=== PATIENT | male | born 1960 | race Caucasian/White ===

== ENCOUNTER → 2018-03-25 10:43 | Outpatient (CLI) | payer BC, SELFPAY ==
[2018-03-25 11:52] LABS: Cholesterol 178 mg/dL (140-199); HDL Cholesterol 49 mg/dL (40-60); LDL Cholesterol Calculated 80 mg/dL (<100); Triglycerides 244 mg/dL (35-150)
== END ==
PROVIDERS: PCP Family Medicine; Visit Provider Family Medicine
DX: E78.00 Pure hypercholesterolemia, unspecified (principal)
CPT/HCPCS: 36415; 80061

== ENCOUNTER → 2018-04-21 11:33 | Outpatient (CLI) | payer BC, SELFPAY ==
--- NOTE | 2018-04-21 11:35 | DI.RAD.S_ITS ---
PROCEDURE: XR KNEE RT 3V INDICATIONS: Knee swelling TECHNIQUE: 3 views of the knee were acquired. COMPARISON: None. FINDINGS: Bones: No fractures or dislocations. No suspicious bony lesions. Mild degenerative joint disease is present trace of joint space narrowing and osteophyte formation. Soft tissues: There is a [id number] joint effusion. No suspicious soft tissue calcifications. IMPRESSION: 1. Mild degenerative joint disease. 2. Moderate to large knee joint effusion. Dictated by: Do Pimentel M.D. on 04/21/2018 at 16:35 Approved by: Do Pimentel M.D. on 04/21/2018 at 16:36
== END ==
PROVIDERS: PCP Family Medicine; Visit Provider Physician Assistant
DX: M25.561 Pain in right knee (principal); M17.11 Unilateral primary osteoarthritis, right knee; M25.461 Effusion, right knee
CPT/HCPCS: 73562

== ENCOUNTER 2018-08-15 18:49 | Emergency (ER) | payer BC, SELFPAY ==
[2018-08-15 18:55] VITALS: BP 147/79; PULSE 83; RESP 16; TEMP 37.3; O2SAT 97
--- NOTE | 2018-08-15 18:58 | DI.RAD.S_ITS ---
PROCEDURE: XR CHEST 1V INDICATIONS: chest pain TECHNIQUE: One view of the chest was acquired. COMPARISON: None. FINDINGS: Surgical changes and devices: None. Lungs and pleura: No pleural effusions or pneumothorax. Lungs are clear. Mediastinum: Mediastinal contours appear normal. Heart size is normal. Bones and chest wall: No suspicious bony lesions. Overlying soft tissues appear unremarkable. IMPRESSION: Normal for age, source of current chest pain symptoms is not seen. Dictated by: Gustavo Martinez M.D. on 08/15/2018 at 19:38 Approved by: Gustavo Martinez M.D. on 08/15/2018 at 19:38
[2018-08-15] MEDS: ASPIRIN 81 MG TAB 324 MG PO (19:17)
--- NOTE | 2018-08-15 19:17 | ED.CHESTPAIN ---
HPI - Chest Pain General Chief Complaint: Chest Pain Stated Complaint: CHEST PAIN Time Seen by Provider: 08/15/18 19:08 Source: patient Mode of arrival: ambulatory Limitations: no limitations History of Present Illness HPI narrative: patient is a 58-year-old male who presents with chest discomfort sent over from the walk-in. He says he woke up last night with some chest pain. He has some pressure in his back as well. He was able to go to work today. He did eventually told his daughter that he needed to go see a doctor today he went to the walk-in clinic. Sent here for further evaluation of chest pain. He does have a history of hypertension but no known coronary artery disease. He denies any fever or productive cough. MD complaint: chest pain Duration: now resolved Onset: during rest Severity: mild Quality: aching and heaviness Pain radiation: none Relieving factors: nothing Exacerbating factors: nothing Treatments prior to arrival chest pain: none Related Data Previous Rx's Medication Instructions Recorded lisinopril-hydrochlorothiazide 0.5 tab PO QDAY #90 tab 11/15/17 diclofenac 1 % topical gel 2 gram TOP QID #100 gram 04/24/18 simvastatin 10 mg tablet 10 mg PO HS #90 tab 06/08/18 Allergies Allergy/AdvReac Type Severity Reaction Status Date / Time No Known Allergies Allergy Uncoded 08/15/18 18:03 Review of Systems Review of Systems GENERAL: Denies chills, fatigue, malaise, fever, sweats, travel HEENT: Denies sinus pain, ear pain, sore throat, difficulty swallowing, neck pain RESPIRATORY: Denies dyspnea, cough, wheezing, hemoptysis, sputum. CARDIOVASCULAR: see hpi GASTROINTESTINAL: Denies nausea, vomiting, abdominal pain, diarrhea, constipation, melena. : Denies dysuria, frequency, incontinence, hematuria, urinary retention, flank pain. MUSCULOSKELETAL: Denies weakness, joint pain, or bony pain SKIN: No rash, no erythema, no pruritus NEUROLOGIC: Denies weakness, dizziness, headache, numbness, change in speech, confusion PSYCHIATRIC: No concerning psychosocial issues. 12 point review of systems is negative except for those stated above and HPI [facility] Surgical History History of partial colectomy (Resolved ~1999) Family History Grandmother Hypertension Father Cancer Mother Cancer Social History Smoking Status: Never smoker Exam Initial Vital Signs Initial Vital Signs: Vital Signs Temperature 99.2 F 08/15/18 18:55 Pulse Rate 83 08/15/18 18:55 Respiratory Rate 16 08/15/18 18:55 Blood Pressure 147/79 H 08/15/18 18:55 Pulse Oximetry 97 08/15/18 18:55 GENERAL: Well-appearing, well-nourished and in no acute distress. HEENT: Head atraumatic,EOMI, pupils reactive, neck is supple CARDIOVASCULAR: Regular rate and rhythm without murmurs, rubs or gallops. RESPIRATORY: Breath sounds equal bilaterally, no wheezes rales or rhonchi. ABDOMEN: Soft, nontender. Normoactive bowel sounds all 4 quadrants. No guarding or rebound. EXTREMITIES: Normal range of motion, no clubbing or edema. Neurovascularly intact NEUROLOGICAL: Alert and oriented x4.Normal gait and speech. Cranial nerves II through XII grossly intact. SKIN: Warm, dry, no laceration, no petechiae, no rashes or lesions. Scores HEART Score Heart Score history: Slightly Suspicious Heart Score EKG: Normal Heart Score Age: 45-64 years old Heart Score risk factors: 1-2 risk factors Heart Score troponin: < or = to normal limit Heart Score Total: 2 Course Orders Ordered: ED Orders 08/15/18 18:58 XR chest 1V Stat EKG-12 Lead Stat 08/15/18 19:07 CKMB Panel (CK + CKMB) Stat Complete Blood Count AUTO DIFF Stat Comprehensive Metabolic Panel Stat Troponin I Stat Discontinued Medications Aspirin (Aspirin Chew) 324 mg PO NOW ONE Stop: 08/15/18 19:16 Last Admin: 08/15/18 19:17 Dose: 324 mg Vital Signs - 8 hr 08/15/18 18:55 08/15/18 19:30 08/15/18 20:00 Temperature 99.2 F Pulse Rate 83 77 78 Respiratory Rate 16 15 24 Blood Pressure 147/79 H Blood Pressure [Left Arm] 127/75 136/76 Pulse Oximetry 97 95 94 MDM - Chest Pain Lab Data Attestation: I reviewed the patient's lab results. Result diagrams: 08/15/18 19:07 08/15/18 19:07 Lab Results 08/15/18 08/15/18 08/15/18 Range/Units 19:07 19:07 19:07 WBC 14.3 H (4.5-11.0) X10^3/uL RBC 4.28 L (4.5-5.9) X10^6/uL Hgb 13.5 (13.5-17.5) g/dL Hct 39.6 L (41-53) % MCV 92.5 (80-100) fL MCH 31.6 (26-34) PG MCHC 34.1 (30-36) % RDW 13.7 (11.6-14.8) % Plt Count 355 (150-400) X10^3/uL Neut % (Auto) 57.0 (50-75) % Lymph % (Auto) 30.0 (25-40) % [place] % (Auto) 8.9 (3-14) % Eos % (Auto) 2.7 (2-4) % Baso % (Auto) 1.4 (0-2) % Neut # (Auto) 8100 H (6346-2761) /uL Lymph # (Auto) 4300 (1432-6332) /uL [place] # (Auto) 1300 H (0-900) /uL Eos # (Auto) 400 (0-450) /uL Baso # (Auto) 200 H (0-100) /uL Sodium 137 (137-145) mmol/L Potassium 3.8 (3.4-5.1) mmol/L Chloride 100 (98-107) mmol/L Carbon Dioxide 24 (22-32) mmol/L BUN 16 (9-20) mg/dL Creatinine 1.10 (0.66-1.25) mg/dL Estimated GFR > 60.0 (>60) mL/min BUN/Creatinine Ratio 14.5 (6-22) Glucose 113 H (70-100) mg/dL Calcium 9.4 (8.4-10.2) mg/dL Total Bilirubin 0.7 (0.2-1.3) mg/dL AST 31 (17-59) IU/L ALT 42 (21-72) IU/L Alkaline Phosphatase 120 (38-126) U/L Total Creatine Kinase 196 H (55-170) U/L CK-MB (CK-2) 1.98 (<2.37) ng/mL CK-MB (CK-2) Rel Index 1.0 L (1.5-5.0) % Troponin I < 0.012 (0.01-0.034) ng/mL Total Protein 8.4 H (6.3-8.2) g/dL Albumin 4.6 (3.5-5.0) g/dL Globulin 3.8 (1.7-4.1) g/dL Albumin/Globulin Ratio 1.2 (1.0-2.8) Imaging Data Chest x-ray: Radiologist's impression: PROCEDURE: XR CHEST 1V INDICATIONS: chest pain TECHNIQUE: One view of the chest was acquired. COMPARISON: None. FINDINGS: Surgical changes and devices: None. Lungs and pleura: No pleural effusions or pneumothorax. Lungs are clear. Mediastinum: Mediastinal contours appear normal. Heart size is normal. Bones and chest wall: No suspicious bony lesions. Overlying soft tissues appear unremarkable. IMPRESSION: Normal for age, source of current chest pain symptoms is not seen. Dictated by: Gustavo Martinez M.D. on 08/15/2018 at 19:38 ECG Data Attestation: I personally reviewed and interpreted this ECG as follows: Prior ECG tracings: not available for review Interpretation: Normal sinus rhythm rate the no acute ST changes Q-waves noted in lateral leads no T-wave inversions. MDM Narrative Medical decision making narrative: Patient refused 2nd EKG stating that they did 1 at the walk-in clinic. He is chest pain-free. No source of chest pain identified. Patient is low risk for cardiac however discussed with both he and his started that he does need further workup such as a stress test. I also encouraged him to return to the emergency department if he should have return of chest pain. He overall is feeling better and wanting to go home. I discussed all findings with the patient and daughter, Education has been performed regarding treatment plan, diagnosis, warning signs and symptoms and all concerns have been addressed. Verbally agree with and understood all of the above. Discharge Plan Departure Patient Disposition: Home Clinical Impression: Atypical chest pain Discharge Date/Time: 08/15/18 20:29 Interventions: ED Discharge Assessment Last Done: 08/15/18 20:29 Instructions: DI for Atypical Chest Pain Activity Restrictions/Additional Instructions: *You have been diagnosed with atypical chest pain *What to do: you do need a stress test. Please call your primary care provider tomorrow to set up a follow-up appointment *Continue to take medications as directed aspirin 81 mg once a day- this help protect you from heart attacks and strokes *Follow up with your primary care provider in 2-3 days *Return to ER if you should have increasing chest pain, change in chest pain, shortness of breath heart palpitations or any new, worsening or concerning symptoms Prescriptions: No Action diclofenac sodium [Voltaren] 1 % gel 2 gram TOP QID Qty: 100 RF: 1 lisinopril-hydrochlorothiazide 20 MG/12.5 MG tablet 0.5 tab PO QDAY Qty: 90 RF: 3 simvastatin 10 mg tablet 10 mg PO HS Qty: 90 RF: 2 Referrals: Demian Suresh MD [Primary Care Provider] -
[2018-08-15 19:18] LABS: Add Manual Diff / Slide Review NO; Basophils Absolute Auto 200 /uL (0-100); Basophils Percent Auto 1.4 % (0-2); Eosinophils Absolute Auto 400 /uL (0-450); Eosinophils Percent Auto 2.7 % (2-4); Hematocrit 39.6 % (41-53); Hemoglobin 13.5 g/dL (13.5-17.5); Lymphocytes Absolute Auto 4300 /uL (1100-4500); Mean Corpuscular HGB Conc 34.1 % (30-36); Mean Corpuscular Hemoglobin 31.6 PG (26-34); Mean Corpuscular Volume 92.5 fL (80-100); Monocytes Absolute Auto 1300 /uL (0-900); Monocytes Percent Auto 8.9 % (3-14); Neutrophils Absolute Auto 8100 /uL (1500-7000); Platelet Count 355 X10^3/uL (150-400); Red Blood Cell Count 4.28 X10^6/uL (4.5-5.9); Red Cell Distribution Width 13.7 % (11.6-14.8); White Blood Cell Count 14.3 X10^3/uL (4.5-11.0)
[2018-08-15 19:30] VITALS: BP 127/75; PULSE 77; RESP 15; O2SAT 95
[2018-08-15 19:30] LABS: Alanine Aminotransferase 42 IU/L (21-72); Albumin 4.6 g/dL (3.5-5.0); Albumin Globulin Ratio 1.2 (1.0-2.8); Alkaline Phosphatase 120 U/L (38-126); Aspartate Aminotransferase 31 IU/L (17-59); BUN Creatinine Ratio 14.5 (6-22); Bilirubin Total 0.7 mg/dL (0.2-1.3); Blood Urea Nitrogen 16 mg/dL (9-20); Calcium 9.4 mg/dL (8.4-10.2); Carbon Dioxide 24 mmol/L (22-32); Chloride 100 mmol/L (98-107); Estimated Glomerular Filt Rate > 60.0 mL/min (>60); Globulin 3.8 g/dL (1.7-4.1); Glucose 113 mg/dL (70-100); HEMOLYSIS < 15 (0-50); Potassium 3.8 mmol/L (3.4-5.1); Sodium 137 mmol/L (137-145); Total Protein 8.4 g/dL (6.3-8.2)
[2018-08-15 19:43] LABS: Troponin I < 0.012 ng/mL (0.01-0.034)
[2018-08-15 20:00] VITALS: BP 136/76; PULSE 78; RESP 24; O2SAT 94
[2018-08-15 20:02] LABS: Creatine Kinase 196 U/L (55-170)
[2018-08-15 20:25] LABS: Creatine Kinase MB 1.98 ng/mL (<2.37)
== END 2018-08-15 20:29 | disposition home or self-care (01) ==
PROVIDERS: Emergency Provider Emergency Medicine; PCP Student in an Organized Health Care Education/Training Program
DX: R07.89 Other chest pain (principal)
CPT/HCPCS: 36415; 71045; 80053; 82550; 82553; 84484; 85025; 93005; 93010; 99282; 99285

== ENCOUNTER → 2020-01-31 12:23 | Outpatient (CLI) | payer OTHER, SELFPAY ==
[2020-02-01 15:40] LABS: Fecal Immunochemical Test Negative (Negative)
== END ==
PROVIDERS: PCP Student in an Organized Health Care Education/Training Program; Referring Provider Student in an Organized Health Care Education/Training Program; Visit Provider Student in an Organized Health Care Education/Training Program
DX: Z12.11 Encounter for screening for malignant neoplasm of colon (principal)
CPT/HCPCS: 82274

== ENCOUNTER → 2023-04-08 10:57 | Outpatient (CLI) | payer OTHER, SELFPAY ==
[2023-04-08 12:27] LABS: Add Manual Diff / Slide Review NO; Basophils Absolute Auto 100 /uL (0-100); Basophils Percent Auto 0.7 % (0-2); Eosinophils Absolute Auto 100 /uL (0-450); Eosinophils Percent Auto 1.3 % (2-4); Hematocrit 41.8 % (41-53); Hemoglobin 14.4 g/dL (13.5-17.5); Lymphocytes Absolute Auto 3200 /uL (1100-4500); Lymphocytes Percent Auto 28.7 % (25-40); Mean Corpuscular HGB Conc 34.4 % (30-36); Mean Corpuscular Hemoglobin 32.5 PG (26-34); Mean Corpuscular Volume 94.5 fL (80-100); Monocytes Absolute Auto 1100 /uL (0-900); Monocytes Percent Auto 9.5 % (3-14); Neutrophils Absolute Auto 6700 /uL (1500-7000); Neutrophils Percent Auto 59.8 % (50-75); Platelet Count 299 X10^3/uL (150-400); Red Blood Cell Count 4.43 X10^6/uL (4.5-5.9); Red Cell Distribution Width 12.9 % (11.6-14.8); White Blood Cell Count 11.3 X10^3/uL (4.5-11.0)
[2023-04-08 13:10] LABS: Alanine Aminotransferase 59 IU/L (<50); Albumin 4.4 g/dL (3.5-5.0); Albumin Globulin Ratio 1.3 (1.0-2.8); Alkaline Phosphatase 101 U/L (38-126); Aspartate Aminotransferase 39 IU/L (17-59); BUN Creatinine Ratio 22.1 (6-22); Bilirubin Total 0.8 mg/dL (0.2-1.3); Blood Urea Nitrogen 23 mg/dL (9-20); Calcium 10.1 mg/dL (8.4-10.2); Carbon Dioxide 20 mmol/L (22-32); Chloride 105 mmol/L (98-107); Cholesterol 188 mg/dL (140-199); Estimated Glomerular Filt Rate > 60 mL/min (>60); Globulin 3.4 g/dL (1.7-4.1); Glucose 115 mg/dL (80-110); HDL Cholesterol 54 mg/dL (40-60); HEMOLYSIS < 15 (0-50); LDL Cholesterol Calculated 85 mg/dL (<100); Potassium 4.5 mmol/L (3.4-5.1); Sodium 138 mmol/L (137-145); Total Protein 7.8 g/dL (6.3-8.2); Triglycerides 247 mg/dL (35-150)
[2023-04-08 13:32] LABS: Prostate Specific Antigen Scrn 2.97 ng/mL (0.1-4.0)
== END ==
PROVIDERS: PCP Pediatrics; Referring Provider Pediatrics; Visit Provider Pediatrics
DX: E66.9 Obesity, unspecified (principal); I10 Essential (primary) hypertension; E78.00 Pure hypercholesterolemia, unspecified; Z12.5 Encounter for screening for malignant neoplasm of prostate
CPT/HCPCS: 36415; 80053; 80061; 85025; G0103

== ENCOUNTER → 2024-05-30 07:07 | Outpatient (CLI) | payer BC, SELFPAY ==
[2024-05-30 09:06] LABS: Hematocrit 43.4 % (41-53); Hemoglobin 14.7 g/dL (13.5-17.5); Mean Corpuscular Hemoglobin 32.8 PG (26-34); Mean Corpuscular Volume 96.6 fL (80-100); Platelet Count 255 X10^3/uL (150-400); Red Blood Cell Count 4.49 X10^6/uL (4.5-5.9); Red Cell Distribution Width 13.4 % (11.6-14.8); White Blood Cell Count 11.8 X10^3/uL (4.5-11.0)
[2024-05-30 09:31] LABS: BUN Creatinine Ratio 27.9 (6-22); Blood Urea Nitrogen 31 mg/dL (9-20); Calcium 9.7 mg/dL (8.4-10.2); Carbon Dioxide 23 mmol/L (22-32); Chloride 105 mmol/L (98-107); Cholesterol 227 mg/dL (140-199); Estimated Glomerular Filt Rate > 60 mL/min (>60); Glucose 114 mg/dL (80-110); HDL Cholesterol 58 mg/dL (40-60); HEMOLYSIS 30 (0-50); LDL Cholesterol Calculated 120 mg/dL (<100); Sodium 137 mmol/L (137-145); Triglycerides 245 mg/dL (35-150)
== END ==
PROVIDERS: PCP Nurse Practitioner Family; Referring Provider Nurse Practitioner Family; Visit Provider Nurse Practitioner Family
DX: R73.09 Other abnormal glucose (principal); I10 Essential (primary) hypertension; E78.00 Pure hypercholesterolemia, unspecified
CPT/HCPCS: 36415; 80048; 80061; 85027

== ENCOUNTER → 2024-11-29 10:11 | Outpatient (CLI) | payer BC, SELFPAY ==
[2024-11-29 10:32] LABS: Add Manual Diff / Slide Review NO; Basophils Absolute Auto 100 /uL (0-100); Basophils Percent Auto 0.7 % (0-2); Eosinophils Absolute Auto 100 /uL (0-450); Eosinophils Percent Auto 1.1 % (2-4); Hematocrit 43.1 % (41-53); Hemoglobin 14.6 g/dL (13.5-17.5); Lymphocytes Absolute Auto 4200 /uL (1100-4500); Lymphocytes Percent Auto 32.5 % (25-40); Mean Corpuscular Hemoglobin 32.4 PG (26-34); Mean Corpuscular Volume 95.1 fL (80-100); Monocytes Absolute Auto 1000 /uL (0-900); Monocytes Percent Auto 7.9 % (3-14); Neutrophils Absolute Auto 7400 /uL (1500-7000); Neutrophils Percent Auto 57.8 % (50-75); Platelet Count 230 X10^3/uL (150-400); Red Blood Cell Count 4.53 X10^6/uL (4.5-5.9); Red Cell Distribution Width 13.4 % (11.6-14.8); White Blood Cell Count 12.8 X10^3/uL (4.5-11.0)
[2024-11-29 10:52] LABS: Hemoglobin A1C% w Est Avg Glu 5.9 % (4.0-6.0)
[2024-11-29 11:10] LABS: BUN Creatinine Ratio 19.3 (6-22); Blood Urea Nitrogen 22 mg/dL (9-20); Calcium 9.6 mg/dL (8.4-10.2); Carbon Dioxide 21 mmol/L (22-32); Chloride 106 mmol/L (98-107); Cholesterol 130 mg/dL (140-199); Estimated Glomerular Filt Rate > 60 mL/min (>60); Glucose 116 mg/dL (70-99); HDL Cholesterol 53 mg/dL (40-60); HEMOLYSIS < 15 (0-50); LDL Cholesterol Calculated 55 mg/dL (<100); Potassium 4.6 mmol/L (3.4-5.1); Sodium 137 mmol/L (137-145); Triglycerides 109 mg/dL (35-150)
== END ==
PROVIDERS: PCP Nurse Practitioner Family; Referring Provider Nurse Practitioner Family; Visit Provider Nurse Practitioner Family
DX: D72.829 Elevated white blood cell count, unspecified (principal); E78.5 Hyperlipidemia, unspecified; I10 Essential (primary) hypertension; E66.9 Obesity, unspecified
CPT/HCPCS: 36415; 80048; 80061; 83036; 85025